=== PATIENT | female | born 1960 | race Caucasian/White ===

== ENCOUNTER 2017-02-15 09:08 | Day surgery (SDC) | payer BC ==
[2017-02-13 15:33] VITALS: BMI 43.4
[~2017-02-15 09:08] MED LIST: LACTATED RINGERS 1,000 ML IV SCH; LIDOCAINE 1% 20 ML VIAL (10MG/ML) FOR IV START INTRADERMA PRN
[2017-02-15 09:33] VITALS: RESP 16; TEMP 97.7
[2017-02-15] MEDS ORDERED: LIDOCAINE 1% INJ 10MG/ML (20 ML MDV) ONE (10:13)
[2017-02-15] MEDS ORDERED: PROPOFOL 10 MG/ML 20 ML VIAL IV ONE (10:13)
--- NOTE | 2017-02-15 10:37 | P.PCN ---
Date of Procedure: 02/15/17 Procedure(s) Performed: BRIEF HISTORY: Patient is a 56-year-old pleasant white female scheduled for an elective colonoscopy as a part of evaluation of chronic post her diarrhea for the last several months duration. PROCEDURE PERFORMED: Colonoscopy with biopsy. PREOPERATIVE DIAGNOSIS: Chronic postprandial diarrhea. IV sedation per Anesthesia. PROCEDURE: After informed consent was obtained, the patient, was brought into the endoscopy unit. IV sedation was administered by Anesthesia under continuous monitoring. Digital rectal examination was normal. Initially the Olympus CF- 160 flexible video colonoscope was then inserted in the rectum, gradually advanced into the cecum without any difficulty. Careful examination was performed as the scope was gradually being withdrawn. Ileocecal valve and the appendiceal orifice were visualized and appeared normal. Prep was excellent. Mucosa of the cecum, ascending colon appeared normal. In the ascending colon there was a 5 mm polyp that was removed by biopsy. Also in the descending colon there was another 5 mm polyp that was removed by biopsy.. The rest of the transverse colon, descending colon, sigmoid colon, and rectum appeared normal. Random biopsies were done from ascending and descending colon to rule out [place] scope E/collagenous colitis. Retroflexion was performed in the rectum and no lesions were seen. The patient tolerated the procedure well. IMPRESSION: 5 mm ascending colon polyp status post removal by biopsy. 5 mm descending colon polyp status post removal by biopsy. Rest of the colon appeared normal. RECOMMENDATIONS: Findings of this examination were discussed with the patient as well as her family. She was advised to follow with the biopsy results. She' ll be seen in office in 4 weeks.
[2017-02-15 10:52] VITALS: BP 117/68; PULSE 72
== END 2017-02-15 11:20 | disposition home or self-care (01) ==
LOC: ORWHC2ENDO 09:08
PROVIDERS: ATTEND Internal Medicine Gastroenterology
DX: D12.2 Benign neoplasm of ascending colon (principal); K63.5 Polyp of colon; E07.9 Disorder of thyroid, unspecified; E66.01 Morbid (severe) obesity due to excess calories; Z68.41 Body mass index [BMI] 40.0-44.9, adult; Z79.899 Other long term (current) drug therapy; Z88.2 Allergy status to sulfonamides
CPT/HCPCS: 88305; 45380; J2001; J2704

== ENCOUNTER → 2017-05-15 | Outpatient (CLI) | payer BC ==
--- NOTE | 2017-05-15 08:28 | XR ---
EXAMINATION TYPE: XR chest 2V DATE OF EXAM: 05/15/2017 COMPARISON: NONE HISTORY: Chronic wheezing TECHNIQUE: Frontal and lateral views of the chest are obtained. FINDINGS: There is no focal air space opacity, pleural effusion, or pneumothorax seen. The cardiac silhouette size is within normal limits. The osseous structures are intact. Cholecystectomy clips a re noted within the right upper quadrant. Minimal multilevel degenerative changes of the thoracic IMPRESSION: No acute cardiopulmonary process.
== END | disposition home or self-care (01) ==
LOC: RADXRMAIN 07:24
PROVIDERS: ATTEND Internal Medicine Geriatric Medicine
DX: R06.2 Wheezing (principal)
CPT/HCPCS: 71046

== ENCOUNTER → 2017-10-18 | Outpatient (CLI) | payer BC ==
[2017-10-18 15:01] VITALS: BP 157/78; PULSE 86; RESP 20; TEMP 98.5; BMI 27.1
--- NOTE | 2017-10-18 21:15 | P.GSHP ---
History of Present Illness H&P Date: 10/18/17 HPI: She comes in for band removal. Band was placed in 2010. Last accessed band in 2013. She reports new IBS with her band. She also reports pain from her port. Lowest weight her band was 175 pounds. Highest weight was 185 pounds. ABDOMEN: Band is upper left abdomen. PLAN: 1. Plan for band removal. 2. She reports constant abdominal pain. Past Medical History Additional Past Medical History / Comment(s): hx of loose stools, hx blood in stools, current rash on hands, itching History of Any Multi-Drug Resistant Organisms: None Reported Past Surgical History: Bariatric Surgery, Cholecystectomy, Joint Replacement, Orthopedic Surgery Additional Past Surgical History / Comment(s): caren knee replacements, one knee reconstructed, caren carpal tunnel, lap band Past Anesthesia/Blood Transfusion Reactions: Previous Problems w/ Anesthesia, Postoperative Nausea & Vomiting (PONV) Additional Past Anesthesia/Blood Transfusion Reaction / Comment(s): has woke up in the middle of sx more than once Smoking Status: Never smoker - Past Family History Mother Family Medical History: Deep Vein Thrombosis (DVT) Father Family Medical History: Cancer Additional Family Medical History / Comment(s): lymphoma, prostate Medications and Allergies Home Medications Medication Instructions Recorded Confirmed Type [place] Thyroid 4 g PO DAILY 02/13/17 02/15/17 History Dicyclomine 1 tab PO DAILY 02/13/17 02/15/17 History Allergies Allergy/AdvReac Type Severity Reaction Status Date / Time latex Allergy Itching Verified 02/13/17 15:22 Sulfa (Sulfonamide Allergy Unknown Verified 02/13/17 15:22 Antibiotics) Childhood
== END | disposition home or self-care (01) ==
LOC: BARWHC3 13:14
PROVIDERS: ATTEND Surgery Plastic and Reconstructive Surgery
DX: Z48.815 Encounter for surgical aftercare following surgery on the digestive system (principal); Z98.84 Bariatric surgery status; Z90.49 Acquired absence of other specified parts of digestive tract; Z79.899 Other long term (current) drug therapy; Z91.040 Latex allergy status; Z88.2 Allergy status to sulfonamides; Z98.890 Other specified postprocedural states
CPT/HCPCS: 99211

== ENCOUNTER → 2017-10-18 | Outpatient (CLI) | payer BC | END | disposition home or self-care (01) | LOC: LABPAT 15:18 | PROVIDERS: ATTEND Surgery Plastic and Reconstructive Surgery | DX: Z01.818 Encounter for other preprocedural examination (principal) | CPT/HCPCS: 93005 ==

== ENCOUNTER 2020-01-16 10:00 | Day surgery (SDC) | payer BC ==
[2020-01-14 17:46] VITALS: BMI 44.1
[~2020-01-16 10:00] MED LIST changes: -LACTATED RINGERS 1,000 ML IV SCH; +LIDOCAINE 1% (10MG/ML) FOR IV START INTRADERMA PRN; -LIDOCAINE 1% 20 ML VIAL (10MG/ML) FOR IV START INTRADERMA PRN
[2020-01-16] MEDS: LACTATED RINGERS 1,000 ML IV SCH ×2 (10:35→11:16)
[2020-01-16 10:41] VITALS: TEMP 98.2
[2020-01-16] MEDS ORDERED: LIDOCAINE 1% INJ 10MG/ML (20 ML MDV) ONE (11:17)
[2020-01-16] MEDS ORDERED: PROPOFOL 10 MG/ML 20 ML VIAL IV ONE (11:17)
--- NOTE | 2020-01-16 11:32 | P.PCN ---
Date of Procedure: 01/16/20 Procedure(s) Performed: BRIEF HISTORY: Patient is a 59-year-old pleasant white female scheduled for an elective colonoscopy as a part of evaluation of intermittent rectal bleeding and prior history of colon polyps. PROCEDURE PERFORMED: Colonoscopy with biopsy. PREOPERATIVE DIAGNOSIS: History of colon polyps and intermittent rectal bleeding. IV sedation per Anesthesia. PROCEDURE: After informed consent was obtained, the patient, was brought into the endoscopy unit. IV sedation was administered by Anesthesia under continuous monitoring. Digital rectal examination was normal. Initially the Olympus CF-160 flexible video colonoscope was then inserted in the rectum, gradually advanced into the cecum without any difficulty. Careful examination was performed as the scope was gradually being withdrawn. Ileocecal valve and the appendiceal orifice were visualized and appeared normal. Prep was excellent. Mucosa of the cecum, ascending colon, transverse colon, descending colon, sigmoid colon, and rectum appeared normal. There was a 3 mm distal rectal polyp noted which was removed by biopsy. Retroflexion was performed in the rectum and small internal hemorrhoids were seen. The patient tolerated the procedure well. IMPRESSION: 3 mm distal rectal polyp status post biopsy Small internal hemorrhoids RECOMMENDATIONS: Findings of this examination were discussed with the patient as well as her family. She was advised to follow with the biopsy results. If the biopsy shows an adenoma she can have a repeat colonoscopy in 5 years.
[2020-01-16 12:18] VITALS: BP 143/69; PULSE 58; RESP 18
== END 2020-01-16 12:33 | disposition home or self-care (01) ==
LOC: ORWHC2ENDO 10:00
PROVIDERS: ATTEND Internal Medicine Gastroenterology
DX: K62.1 Rectal polyp (principal); K64.8 Other hemorrhoids; Z86.010 Personal history of colon polyps; I10 Essential (primary) hypertension; E07.9 Disorder of thyroid, unspecified; G47.33 Obstructive sleep apnea (adult) (pediatric); Z88.2 Allergy status to sulfonamides; Z91.040 Latex allergy status; Z87.891 Personal history of nicotine dependence; Z79.890 Hormone replacement therapy; Z79.899 Other long term (current) drug therapy
CPT/HCPCS: 88305; 45380; J2001; J2704

== ENCOUNTER 2021-02-23 14:02 | Emergency (ER) | payer BC ==
[2021-02-23 14:57] VITALS: TEMP 97
[2021-02-23] MEDS ORDERED: HYDROmorphone 0.5 MG/0.5 ML SYRINGE IVP STA (16:37)
[2021-02-23] MEDS ORDERED: SODIUM CHLORIDE 0.9% 500 ML 500 ML IV STA (16:37)
[2021-02-23] MEDS ORDERED: ONDANSETRON 4 MG/2 ML VIAL IVP STA (16:37)
--- NOTE | 2021-02-23 16:44 | ED ---
General Adult HPI - General Chief complaint: Abdominal Pain Stated complaint: poss kidney stone Time Seen by Provider: 02/23/21 16:28 Source: patient Mode of arrival: ambulatory Limitations: no limitations - History of Present Illness Initial comments: This 60-year-old female presents to the emergency department with abdominal pain radiating to her back. Patient states her pain began at 11 AM. She states she was also nauseous but did not vomit. Patient states she has had multiple kidney stones in her past, which have a similar feeling to what she is experiencing now. She denies chest pain, shortness of breath, fever, constipation, diarrhea. - Related Data Home Medications Medication Instructions Recorded Confirmed Juice Plus Blend 1 tab PO DAILY 01/14/20 01/16/20 Levothyroxine Sodium [Tirosint] 150 mcg PO QAM 01/14/20 01/16/20 Li-Zyme 1 tab PO BID 01/14/20 01/16/20 Losartan Potassium [Cozaar] 100 mg PO DAILY 01/14/20 01/16/20 Sym-Pack 1 tab PO HS 01/14/20 01/16/20 Sym-Pack 2 tab PO QAM 01/14/20 01/16/20 Thyrostim 2 tab PO QAM 01/14/20 01/16/20 Previous Rx's Medication Instructions Recorded Tamsulosin [Flomax] 0.4 mg PO DAILY #5 cap 02/23/21 Allergies Allergy/AdvReac Type Severity Reaction Status Date / Time latex Allergy Itching/edith Verified 01/16/20 10:42 h Sulfa (Sulfonamide Allergy Unknown Verified 01/16/20 10:42 Antibiotics) Childhood Review of Systems ROS Statement: Those systems with pertinent positive or pertinent negative responses have been documented in the HPI. ROS Other: All systems not noted in ROS Statement are negative. Past Medical History Past Medical History: Hypertension, Osteoarthritis (OA), Sleep Apnea/CPAP/BIPAP, Thyroid Disorder Additional Past Medical History / Comment(s): IBS, rash on hands, History of Any Multi-Drug Resistant Organisms: None Reported Past Surgical History: Bariatric Surgery, Cholecystectomy, Joint Replacement, Orthopedic Surgery Additional Past Surgical History / Comment(s): caren knee replacements, left knee reconstructed, caren carpal tunnel, lap band Past Anesthesia/Blood Transfusion Reactions: Previous Problems w/ Anesthesia, Motion Sickness, Postoperative Nausea & Vomiting (PONV) Additional Past Anesthesia/Blood Transfusion Reaction / Comment(s): has woke up in the middle of sx more than once Past Psychological History: No Psychological Hx Reported Smoking Status: Former smoker Past Alcohol Use History: None Reported Past Drug Use History: None Reported - Past Family History Father Family Medical History: Cancer Additional Family Medical History / Comment(s): lymphoma, prostate General Exam Limitations: no limitations General appearance: alert, in no apparent distress Respiratory exam: Present: normal lung sounds bilaterally. Absent: respiratory distress, wheezes, rales, rhonchi, stridor Cardiovascular Exam: Present: regular rate, normal rhythm, normal heart sounds. Absent: systolic murmur, diastolic murmur, rubs, gallop, clicks GI/Abdominal exam: Present: soft, tenderness (Diffuse on right side) Back exam: Present: normal inspection, full ROM, CVA tenderness (R) Neurological exam: Present: alert, oriented X3 Psychiatric exam: Present: normal affect, normal mood Skin exam: Present: warm, dry, intact, normal color. Absent: rash Course Vital Signs 02/23/21 14:55 Temperature 97.0 F L Pulse Rate 69 Respiratory 17 Rate Blood Pressure 185/88 O2 Sat by Pulse 96 Oximetry Medical Decision Making - Medical Decision Making This is a 60-year-old female presents to the emergency department with abdominal pain that began this morning at 11 AM. She states she has had this pain before in the past when she had kidney stones. After receiving pain medication and antiemetics, patient states her pain has resolved. Patient to be discharged with Flomax, antiemetics, and pain medication. Patient informed to return to the emergency department if she is unable to void, cannot keep down fluids, or has a fever. Informed to strain urine. Return precautions given. Patient informed to follow-up with urology next 1-2 days. Patient sent home in stable condition. - Lab Data Result diagrams: 02/23/21 17:03 02/23/21 17:03 Lab Results 02/23/21 02/23/21 02/23/21 Range/Units 17:03 17:03 19:59 WBC 14.4 H (3.8-10.6) k/uL RBC 5.31 (3.80-5.40) m/uL Hgb 16.5 H (11.4-16.0) gm/dL Hct 50.4 H (34.0-46.0) % MCV 94.8 (80.0-100.0) fL MCH 31.0 (25.0-35.0) pg MCHC 32.7 (31.0-37.0) g/dL RDW 13.9 (11.5-15.5) % Plt Count 218 (150-450) k/uL MPV 8.7 Neutrophils % 89 % Lymphocytes % 7 % Monocytes % 3 % Eosinophils % 1 % Basophils % 0 % Neutrophils # 12.8 H (1.3-7.7) k/uL Lymphocytes # 1.1 (1.0-4.8) k/uL Monocytes # 0.4 (0-1.0) k/uL Eosinophils # 0.1 (0-0.7) k/uL Basophils # 0.1 (0-0.2) k/uL Sodium 138 (137-145) mmol/L Potassium 5.2 H (3.5-5.1) mmol/L Chloride 101 (98-107) mmol/L Carbon Dioxide 27 (22-30) mmol/L Anion Gap 10 mmol/L BUN 16 (7-17) mg/dL Creatinine 0.85 (0.52-1.04) mg/dL Est GFR (CKD-EPI)AfAm 86 (>60 ml/min/1.73 sqM) Est GFR (CKD-EPI)NonAf 75 (>60 ml/min/1.73 sqM) Glucose 145 H (74-99) mg/dL Calcium 10.0 (8.4-10.2) mg/dL Total Bilirubin 0.4 (0.2-1.3) mg/dL AST 27 (14-36) U/L ALT 18 (4-34) U/L Alkaline Phosphatase 81 (38-126) U/L Total Protein 7.6 (6.3-8.2) g/dL Albumin 4.8 (3.5-5.0) g/dL Amylase 61 (30-110) U/L Lipase 55 (23-300) U/L Urine Color Yellow Urine Appearance Clear (Clear) Urine pH 5.5 (5.0-8.0) Ur Specific [place] 1.025 (1.001-1.035) Urine Protein Trace H (Negative) Urine Glucose (UA) Negative (Negative) Urine Ketones Negative (Negative) Urine Blood Large H (Negative) Urine Nitrite Negative (Negative) Urine Bilirubin Negative (Negative) Urine Urobilinogen <2.0 (<2.0) mg/dL Ur Leukocyte Esterase Small H (Negative) Urine RBC 106 H (0-5) /hpf Urine WBC 7 H (0-5) /hpf Ur Squamous Epith Cells 1 (0-4) /hpf Urine Bacteria Rare H (None) /hpf Urine Mucus Occasional H (None) /hpf Urine Yeast (Budding) Occasional H (None) /hpf Disposition Clinical Impression: Kidney stone Disposition: HOME SELF-CARE Condition: Stable Additional Instructions: Return to emergency department if fever occurs, unable to urinate, unable to keep fluids down or if symptoms worsen. Prescriptions: Tamsulosin [Flomax] 0.4 mg PO DAILY #5 cap Is patient prescribed a controlled substance at d/c from ED?: No Referrals: Kervin Ramey MD [Primary Care Provider] - 1-2 days Zeeshan Birmingham MD [STAFF PHYSICIAN] - 1-2 days Time of Disposition: 20:55
--- NOTE | 2021-02-23 17:13 | XR ---
EXAMINATION TYPE: XR KUB DATE OF EXAM: 02/23/2021 5:05 PM INDICATION: Patient age:Female; 60 years old; Reason for study: abdominal pain; COMPARISON: None TECHNIQUE: One radiographic view of the abdomen was obtained. FINDINGS: There is a 1.0 cm side effusion in the right abdomen unclear whether this is gallstone vers us renal stone. There is band with reservoir bulge which are in appropriate position. Liver is enlarg ed for size. The bowel gas pattern is nonspecific without dilated loops of small or large bowel. Feca l material and gas are demonstrated throughout the colon and rectum. Linear tubal ligation clip noted within the pelvis. IMPRESSION: 1. No acute abdominal process. 2. Cholelithiasis versus right renal calculus 3. Hepatomegaly.
[2021-02-23] MEDS ORDERED: KETOROLAC 15 MG/ML 1 ML VIAL IVP STA (17:14)
[2021-02-23 17:56] LABS: Albumin 4.8 g/dL (3.5-5.0); Total Bilirubin 0.4 mg/dL (0.2-1.3); Total Protein 7.6 g/dL (6.3-8.2)
[2021-02-23 18:12] LABS: Potassium 5.2 mmol/L (3.5-5.1)
[2021-02-23 18:22] LABS: Basophils # (A) 0.1 k/uL (0-0.2); Basophils % (A) 0 %; Eosinophils # (A) 0.1 k/uL (0-0.7); Eosinophils % (A) 1 %; HCT 50.4 % (34.0-46.0); HGB 16.5 gm/dL (11.4-16.0); Lymphocytes # (A) 1.1 k/uL (1.0-4.8); Lymphocytes % (A) 7 %; MCHC 32.7 g/dL (31.0-37.0); MCV 94.8 fL (80.0-100.0); Mean Platelet Volume 8.7; Monocytes # (A) 0.4 k/uL (0-1.0); Monocytes % (A) 3 %; Neutrophils # (A) 12.8 k/uL (1.3-7.7); Neutrophils % (A) 89 %; Platelet Count 218 k/uL (150-450); RBC 5.31 m/uL (3.80-5.40); RDW 13.9 % (11.5-15.5); WBC 14.4 k/uL (3.8-10.6)
[2021-02-23] MEDS ORDERED: ONDANSETRON ODT 4 MG TAB PO STA (18:23)
--- NOTE | 2021-02-23 18:40 | CT ---
EXAMINATION TYPE: CT abdomen pelvis wo con CT DLP: 1714.4 mGycm, Automated exposure control for dose reduction was used. DATE OF EXAM: 02/23/2021 6:22 PM COMPARISON: X-rays same day. CLINICAL INDICATION:Female, 60 years old with history of abdominal pain, Right sided abdominal/back p ain. TECHNIQUE: Standard CT of the abdomen and pelvis without IV or oral contrast. Lack of IV or oral co ntrast limits evaluation of solid and hollow organ viscera. Coronal and sagittal reformats were perfo rmed. FINDINGS: LOWER CHEST: Scattered streaky subsegmental atelectasis/scarring with peripheral reticulation noted. ABDOMEN LIVER: Diffusely hypoattenuating parenchyma. Liver is enlarged for size. GALLBLADDER AND BILE DUCTS: The gallbladder is surgically absent. PANCREAS: Unremarkable. SPLEEN: Unremarkable. ADRENAL GLANDS: Unremarkable. KIDNEYS AND URETERS: Fat stranding around the right kidney with mild hydronephrosis and fat stranding around the collecting system. There is an obstructing 3 mm calculus at the ureteropelvic junction. K idneys unremarkable. PELVIS BLADDER: Unremarkable REPRODUCTIVE: Unremarkable. ABDOMEN & PELVIS STOMACH AND BOWEL: Gastric band with hardware in appropriate position. Scattered diverticula are note d throughout the colon. No evidence of bowel obstruction. PERITONEUM: No evidence of pneumoperitoneum or free fluid. VASCULATURE: No evidence of aortic aneurysm. MUSCULOSKELETAL: No acute osseous abnormalities LYMPH NODES: No gross evidence for lymphadenopathy. SOFT TISSUE/ABDOMINAL WALL: Fat filled umbilical hernia containing loop of small bowel. No evidence f or thickening or evidence to suggest granulation. This measures 2.5 cm at the neck. IMPRESSION: 1. Mild right hydronephrosis secondary to obstructing 3 mm calculus at the ureteropelvic junction. 2. Colonic diverticulosis. 3. Umbilical hernia containing loop of small bowel. No evidence of obstruction or strangulation. 4. Hepatic steatosis.
[2021-02-23 20:19] LABS: Appearance,Urine Clear (Clear); Bacteria,Urine Rare /hpf; Bilirubin,Urine Negative (Negative); Blood,Urine Large (Negative); Budding Yeast,Urine Occasional /hpf; Color,Urine Yellow; Glucose,Urine (UA) Negative (Negative); Ketones,Urine Negative (Negative); Leukocyte Esterase,Urine Small (Negative); Mucus,Urine Occasional /hpf; Nitrite,Urine Negative (Negative); PH, Urine 5.5 (5.0-8.0); Protein,Urine Trace (Negative); RBC,Urine 106 /hpf (0-5); Specific Gravity,Urine 1.025 (1.001-1.035); Squamous Epithelial Cell,Urine 1 /hpf (0-4); Urobilinogen,Urine <2.0 mg/dL (<2.0); WBC,Urine 7 /hpf (0-5)
[2021-02-23] MEDS ORDERED: IBUPROFEN 600 MG STARTER PACK 4 TAB BTL PO STA (20:38)
[2021-02-23] MEDS ORDERED: ACET/COD 300 MG/30 MG STARTER PACK 6 TAB BTL PO STA (20:38)
[2021-02-23] MEDS ORDERED: ONDANSETRON 4 MG ODT STARTER PACK 2 TAB BTL PO STA (20:38)
[2021-02-23] MEDS ORDERED: TAMSULOSIN 0.4 MG CAP.ER.24H PO STA (20:39)
[2021-02-23 22:00] VITALS: BP 162/90; PULSE 93; RESP 18
== END 2021-02-23 22:26 | disposition home or self-care (01) ==
LOC: EC 14:02
DX: N20.0 Calculus of kidney (principal); I10 Essential (primary) hypertension; M19.90 Unspecified osteoarthritis, unspecified site; Z87.891 Personal history of nicotine dependence; Z79.899 Other long term (current) drug therapy
CPT/HCPCS: 36415; 80053; 82150; 83690; 85025; 81001; 87086; 74018; 74176; 99284; 96374; 96375; 96361; J1885; S0119; J1170